=== PATIENT | female | born 1970 | race Caucasian/White ===

== ENCOUNTER 2022-12-05 10:29 | Outpatient (CLI) | payer MEDICARE | END 2022-12-05 10:30 | disposition home or self-care (01) | LOC: CSHMRI 10:29 | PROVIDERS: ATTEND Plastic Surgery Surgery of the Hand | DX: M54.2 Cervicalgia (principal); M47.812 Spondylosis without myelopathy or radiculopathy, cervical region | CPT/HCPCS: 72141 ==